=== PATIENT | male | born 1970 | race Caucasian/White ===

== ENCOUNTER 2020-03-14 01:27 | Emergency (ER) | payer BC, MEDICAID ==
[~2020-03-14] VITALS: Ht 175.3 cm; Wt 86.2 kg
[2020-03-14 01:53] VITALS: BP_SYST 147
[2020-03-14] MEDS ORDERED: KETOROLAC TROMETHAMINE 30 MG VIAL IVP ONE (02:00)
[2020-03-14] MEDS ORDERED: ONDANSETRON HCL 4 MG/2 ML VIAL IVP ONE (02:00)
[2020-03-14 02:18] LABS: BILIRUBIN,URINE NEGATIVE (NEGATIVE); BLOOD, URINE 1+ (NEGATIVE); CLARITY/URINE CLEAR (CLEAR); COLOR,URINE YELLOW (YELLOW); GLUCOSE,URINE NEGATIVE (NEGATIVE); KETONES,URINE NEGATIVE (NEGATIVE); LEUKOCYTE ESTERASE ,URINE NEGATIVE (NEGATIVE); NITRITE, URINE NEGATIVE (NEGATIVE); PROTEIN URINE NEGATIVE (NEGATIVE); UROBILINOGEN,URINE 0.2 (0.2-1.0)
[2020-03-14 02:21] LABS: BACTERIA,URINE FEW /HPF (None Seen); WBC,URINE 0-3 /HPF (0-3)
[2020-03-14 02:42] LABS: BASOPHILS % (AUTO) 0.5 % (0.0-2.0); EOSINOPHILS # (AUTO) 0.1 K/uL (0.0-0.4); HEMATOCRIT 41.9 % (36-54); HEMOGLOBIN 14.3 g/dL (14.0-18.0); LYMPHOCYTES # (AUTO) 2.6 K/uL (1.0-5.5); LYMPHOCYTES % (AUTO) 27.1 % (20.5-51.5); MEAN CORPUSCULAR HEMOGLOBIN 32 pg (27-31); MEAN CORPUSCULAR HGB CONC 34 % (32-36); MEAN CORPUSCULAR VOLUME 93 fL (79.0-98.0); MONOCYTES # (AUTO) 0.9 K/uL (0.0-1.0); MONOCYTES % (AUTO) 9.7 % (1.7-9.3); NEUTROPHILS # (AUTO) 5.9 K/uL (1.8-7.7); NEUTROPHILS % (AUTO) 61.7 % (40.0-70.0); PLATELET COUNT (AUTO) 311 K/uL (130-430); RED BLOOD CELL COUNT(AUTO) 4.51 MIL/uL (4.2-6.2); RED CELL DISTRIBUTION WIDTH 13.2 % (9.0-15.0); WHITE BLOOD COUNT (AUTO) 9.6 K/uL (4.8-10.8)
[2020-03-14 03:02] LABS: CALCIUM 8.6 mg/dL (8.4-11.0); CREATININE 1.16 mg/dL (0.55-1.30); POTASSIUM 3.6 mmol/L (3.5-5.1)
[2020-03-14 03:05] LABS: ALBUMIN 3.4 g/dL (3.4-4.8); TOTAL BILIRUBIN 0.4 mg/dL (0.0-1.0)
[2020-03-14] MEDS ORDERED: cefTRIAXone 1 GM VIAL IM ONE (03:15)
[2020-03-14 03:26] VITALS: BP_SYST 142
== END 2020-03-14 03:25 | disposition home or self-care (01) ==
LOC: SED 01:27
DX: R30.0 Dysuria (principal); R10.30 Lower abdominal pain, unspecified; R11.0 Nausea
CPT/HCPCS: 36415; 74176; 80053; 81000; 83690; 85025; 96372; 96374; 96375; 99284; J0696; J1885; J2405

== ENCOUNTER 2022-08-29 12:21 | Emergency (ER) | payer BC, MEDICAID ==
[~2022-08-29] VITALS: Ht 175.3 cm; Wt 83.9 kg
[2022-08-29 12:37] VITALS: BP_SYST 152
--- NOTE | 2022-08-29 12:40 | NUR ---
Patient triaged and placed in waiting room. VSS and patient appears in no acute distress at this time. Accompanied by FAMILY, awaiting available bed, and MD notified of need for MSE.
[2022-08-29 14:15] LABS: BASOPHILS # (AUTO) 0.1 K/uL (0.0-0.2); BASOPHILS % (AUTO) 0.8 % (0.0-2.0); EOSINOPHILS # (AUTO) 0.2 K/uL (0.0-0.4); HEMATOCRIT 47.2 % (36-54); HEMOGLOBIN 15.8 g/dL (14.0-18.0); LYMPHOCYTES # (AUTO) 2.9 K/uL (1.0-5.5); LYMPHOCYTES % (AUTO) 28.8 % (20.5-51.5); MEAN CORPUSCULAR HEMOGLOBIN 31 pg (27-31); MEAN CORPUSCULAR HGB CONC 34 % (32-36); MEAN CORPUSCULAR VOLUME 93 fL (79.0-98.0); MONOCYTES # (AUTO) 1.1 K/uL (0.0-1.0); MONOCYTES % (AUTO) 10.4 % (1.7-9.3); NEUTROPHILS # (AUTO) 5.9 K/uL (1.8-7.7); PLATELET COUNT (AUTO) 313 K/uL (130-430); RED CELL DISTRIBUTION WIDTH 13.3 % (9.0-15.0); WHITE BLOOD COUNT (AUTO) 10.1 K/uL (4.8-10.8)
--- NOTE | 2022-08-29 14:20 | NUR ---
ER DR. RICHEY EXAMINING PT
[2022-08-29 14:25] LABS: CALCIUM 9.3 mg/dL (8.4-11.0); CREATININE 0.93 mg/dL (0.55-1.30)
[2022-08-29 14:30] LABS: ALBUMIN 3.6 g/dL (3.4-4.8); TOTAL BILIRUBIN 0.4 mg/dL (0.0-1.0)
--- NOTE | 2022-08-29 14:30 | NUR ---
Patient to ER bed H1 to gown for evaluation. Side rails up. Report given to NAVIN WINSLOW.
[2022-08-29 14:32] LABS: BILIRUBIN,URINE NEGATIVE (NEGATIVE); CLARITY/URINE CLEAR (CLEAR); COLOR,URINE YELLOW (YELLOW); GLUCOSE,URINE NEGATIVE (NEGATIVE); KETONES,URINE NEGATIVE (NEGATIVE); LEUKOCYTE ESTERASE ,URINE NEGATIVE (NEGATIVE); NITRITE, URINE NEGATIVE (NEGATIVE); PROTEIN URINE NEGATIVE (NEGATIVE); UROBILINOGEN,URINE 0.2 (0.2-1.0)
[2022-08-29 14:37] LABS: BLOOD, URINE TRACE (NEGATIVE)
[2022-08-29 14:44] LABS: BACTERIA,URINE RARE /HPF (None Seen); WBC,URINE NONE SEEN /HPF (0-3)
[2022-08-29 14:45] LABS: MUCUS,URINE 1+ /LPF (None Seen)
[2022-08-29] MEDS ORDERED: TAMS-11 PO (17:04)
--- NOTE | 2022-08-29 17:18 | NUR ---
ED DR RICHEY SPOKE TO PT IN [facility].
[2022-08-29 17:20] VITALS: BP_SYST 152
--- NOTE | 2022-08-29 17:35 | NUR ---
Patient given written and verbal discharge instructions and verbalizes understanding. ER MD discussed with patient the results and treatment provided. Patient in stable condition. ID arm band removed. Rx of FLOMAX given. Patient educated on pain management and to follow up with PMD. Pain Scale . Opportunity for questions provided and answered. Medication side effect fact sheet provided.
== END 2022-08-29 17:20 | disposition home or self-care (01) ==
LOC: SED 12:21
DX: R31.9 Hematuria, unspecified (principal); R10.9 Unspecified abdominal pain; M54.50 Low back pain, unspecified; R33.9 Retention of urine, unspecified; Z79.899 Other long term (current) drug therapy
CPT/HCPCS: 36415; 76376; 80053; 81000; 83690; 85025; 99284